=== PATIENT | female | born 1970 | race Caucasian/White ===

== ENCOUNTER 2017-07-15 10:17 | Inpatient (IN) | payer OTHER ==
--- NOTE | 2017-07-14 09:27 | HP ---
Satellite [facility] - Chief Complaint Chief Complaint: right knee pain - Past Medical History Allergies/Adverse Reactions: Allergies Allergy/AdvReac Type Severity Reaction Status Date / Time No Known Drug Allergies Allergy Verified 07/08/17 15:28 ...LMP: 01/17/16 - Current Medications Current Medications: Home Medications Medication Instructions Recorded Omeprazole 40 mg PO DAILY 07/08/17 Satellite Physical Exam - Physical Examination General Appearance: Well Nourished, Well Developed, Alert & Oriented x3 ENT: Clear Lung: Normal air movement Heart: Regular rate & rhythm Extremities: Other (right knee- + swelling, + ttp, decr rom, nvi xrays show grade 4 tricompartmental djd) Neurological: Intact, Alert, Oriented Satellite Impression/Plan - Impression/Plan Impression: right knee djd Operative Procedure: right raoul tkr Date to be Performed: 07/15/17
[~2017-07-15 10:17] MED LIST: LACTATED RINGERS SOLUTION 1,000 ML IV SCH; ONDANSETRON 4 MG/2 ML VIAL IVPUSH PRN; PROMETHAZINE HCL 25 MG/1 ML VIAL IVPUSH PRN
[2017-07-15] MEDS ORDERED: CEFAZOLIN 2 GM in DEXTROSE 5%-WATER - 50 ML IVPB ONE (10:28)
[2017-07-15] MEDS ORDERED: TRANEXAMIC ACID 1000 MG/10 ML VIAL IVPUSH ONE (10:28)
[2017-07-15] MEDS ORDERED: oxyCODONE HCL 10 MG SUSTAINED ACTING TABLET PO ONE (10:28)
[2017-07-15] MEDS ORDERED: CELECOXIB 200 MG CAPSULE PO ONE (10:28)
[2017-07-15] MEDS ORDERED: GABAPENTIN 300 MG CAPSULE (FP) PO ONE (10:28)
[2017-07-15] MEDS ORDERED: VANCOMYCIN 1,000 MG VIAL (RESTRICTED TO ID ONLY) ONE (11:25)
[2017-07-15] MEDS ORDERED: ceFAZolin SODIUM 1 GM VIAL ONE ×2 (11:25→14:12)
[2017-07-15 12:10] VITALS: BMI 41.8
[2017-07-15] MEDS ORDERED: DEXAMETHASONE SOD PHOSPHATE/PF 10 MG/ML SDV ONE (13:30)
[2017-07-15] MEDS ORDERED: MIDAZOLAM HCL 2 MG/2 ML SINGLE DOSE VIAL ONE ×3 (13:30→15:26)
[2017-07-15] MEDS ORDERED: ROPIVACAINE HCL 0.5% 30ML VIAL ONE (13:30)
[2017-07-15] MEDS ORDERED: SODIUM CHLORIDE 0.9% P/F 10 ML VIAL IJ ONE (13:30)
[2017-07-15] MEDS ORDERED: TRANEXAMIC ACID 1000 MG/10 ML VIAL ONE (14:12)
[2017-07-15] MEDS ORDERED: DEXAMETHASONE SOD PHOSPHATE 4 MG/1 ML VIAL ONE (14:38)
[2017-07-15] MEDS ORDERED: ONDANSETRON 4 MG/2 ML VIAL ONE (14:38)
[2017-07-15] MEDS ORDERED: SUCCINYLCHOLINE CHLORIDE 200 MG/10 ML VIAL ONE (15:03)
[2017-07-15] MEDS ORDERED: PROPOFOL 20 ML ONE (15:04)
[2017-07-15] MEDS ORDERED: MAGNESIUM HYDROX 2400MG/30ML ORAL SUSPENSION 30 ML CUP PO PRN (16:49)
[2017-07-15] MEDS ORDERED: MAG HYDROX/AL HYDROX/SIMETH 30 ML UNIT-DOSE CUP PO PRN (16:49)
[2017-07-15] MEDS ORDERED: ONDANSETRON 4 MG/2 ML VIAL IVPUSH PRN ×2 (16:49→17:11)
--- NOTE | 2017-07-15 16:52 | OP ---
Operative Note - Note: Operative Date: 07/15/17 (janeen) Pre-Operative Diagnosis: right knee djd Operation: right raoul tkr Post-Operative Diagnosis: Same as Pre-op Surgeon: Noel Rojas Supervisor Paper Machine: Ray Nogueira) Anesthesiologist/CONSTRUCTION CARPENTER: Curry Salinas Anesthesia: Spinal, Local Specimens Removed: bone fragments Estimated Blood Loss (mls): 50 (tourniquet) Operative Report Dictated: Yes
[2017-07-15] MEDS ORDERED: LACTATED RINGERS SOLUTION 1,000 ML IV SCH (17:00)
[2017-07-15] MEDS ORDERED: PROMETHAZINE HCL 25 MG/1 ML VIAL IVPUSH PRN (17:11)
[2017-07-15] MEDS ORDERED: oxyCODONE HCL 5 MG TABLET PO PRN (17:16)
[2017-07-15] MEDS: LACTATED RINGERS SOLUTION 1,000 ML IV SCH (19:17)
[2017-07-15] MEDS: oxyCODONE HCL 5 MG TABLET PO PRN ×2 (19:44→23:39)
[2017-07-15 21:16] LABS: HIV 1 & 2 AB NEGATIVE; HIV 1 AGp24 NEGATIVE
[2017-07-15] MEDS: GABAPENTIN 300 MG CAPSULE (FP) PO SCH (21:24)
[2017-07-15] MEDS: oxyCODONE HCL 10 MG SUSTAINED ACTING TABLET PO SCH (21:25)
[2017-07-15] MEDS: SENNOSIDES/DOCUSATE COMBO (SENNA PLUS) TABLET (UD) PO SCH (21:25)
[2017-07-15] MEDS: CEFAZOLIN 2 GM/D5W 2 GM/50 ML ML IVPB SCH (21:26)
[2017-07-16] MEDS: oxyCODONE HCL 5 MG TABLET PO PRN ×2 (05:00→17:17)
[2017-07-16] MEDS: CEFAZOLIN 2 GM/D5W 2 GM/50 ML ML IVPB SCH (05:46)
[2017-07-16 08:15] LABS: MCH 30.7 pg (25.7-33.7); MCHC 33.3 g/dl (32.0-36.0); MEAN CELL VOLUME 92.2 fl (80-96); MEAN PLT VOLUME 11.8 fl (7.5-11.1); PLATELET COUNT 173 K/MM3 (134-434); RDW 12.6 % (11.6-15.6)
[2017-07-16] MEDS: ASPIRIN 325 MG TABLET PO SCH (08:55)
[2017-07-16] MEDS: SENNOSIDES/DOCUSATE COMBO (SENNA PLUS) TABLET (UD) PO SCH ×2 (09:11→21:04)
[2017-07-16] MEDS: PANTOPRAZOLE 40 MG TABLET (FP) PO SCH (09:11)
[2017-07-16] MEDS: GABAPENTIN 300 MG CAPSULE (FP) PO SCH ×2 (09:12→21:04)
[2017-07-16] MEDS: oxyCODONE HCL 10 MG SUSTAINED ACTING TABLET PO SCH ×2 (09:12→21:05)
[2017-07-16] MEDS: MULTIVITAMINS (DAILY MVI) TABLET (FP) PO SCH (09:12)
--- NOTE | 2017-07-16 09:27 | PN ---
Progress Note (short form) - Note Progress Note: Ortho Pt seen and examined s/p right raoul tkr pod #1 Selected Entries 07/16/17 06:00 Temperature 98.6 F Pulse Rate 67 Respiratory 20 Rate Blood Pressure 116/63 Laboratory Tests 07/16/17 07:30 WBC 10.0 Hgb 12.3 Hct 36.8 Plt Count 173 dressing c/d/i, calf soft, nt rom 0-40, nvi a/p PT dvt ppx pain control d/c home tomorrow if stable
--- NOTE | 2017-07-16 10:59 | PN ---
Progress Note (short form) - Note Progress Note: Post op day#1.S/p Right total knee replacement under spinal anesthesia with R adductor canal and R selective tibial N block uneventful.Patient stable and c/ o pain score of 4-5/10 after physiotherapy.Patient is on medication for pain.No any anesthesia related problem.Patient dc from the anesthesia care.
--- NOTE | 2017-07-16 11:18 | SPEC ---
DATE OF OPERATION: 07/15/2017 PREOPERATIVE DIAGNOSIS: Degenerative joint disease, right knee. POSTOPERATIVE DIAGNOSIS: Degenerative joint disease, right knee. PROCEDURE: Right total knee replacement with robotic-assisted navigation (Makoplasty). SURGICAL ATTENDING: Noel Rojas MD COMPUTER INSTALLATION ENGINEER: Elham Estrella and Ray Nogueira MD ANESTHESIA: Spinal and regional. CLOSURE: A Triathlon cemented total knee system with a 5 femur, a 4 tibia, an 11 polyethylene, a 32 patella, number 1 Vicryl fascia, 0 and 2-0 subcutaneous, 3-0 Monocryl subcuticular with skin glue for skin, 4-0 undyed Vicryl for pin sites. ESTIMATED BLOOD LOSS: Negligible. TOURNIQUET TIME: Approximately 110 minutes. COMPLICATIONS: None. CONDITION: To recovery room in stable condition. DESCRIPTION OF OPERATIVE PROCEDURE: Patient was taken to the operating room on July 15, 2017. Regional and general anesthesia was administered by the anesthesiologist. IV Kefzol and TXA were administered by the anesthesiologist. Well-padded pneumatic tourniquet was placed on the proximal thigh. The right lower extremity was prepped and draped in the usual sterile fashion. The leg was exsanguinated with an Esmarch bandage, and tourniquet was inflated to 275 mmHg. A 12 to 15-cm longitudinal midline incision was incised while centered over the patella. The dissection was carried down to the level of the extensor mechanism with sufficient flaps made to adequately perform the procedure. A medial parapatellar arthrotomy was then performed. We made a cuff of tissue on the patella for later closure. The patella was inverted, the knee was flexed up. The fat pad was excised. The subperiosteal dissection was on the anteromedial proximal tibia around towards the direction of the MCL. The ACL and the PCL were transected and debrided. The meniscal remnants of the medial and lateral meniscus were debrided and removed. This allowed the knee to be able to "be brought forward." The checkpoints were malleted into the tibia and into the femur. Two threaded pins were drilled anteroposteriorly proximal to the knee through the previous incision, through the anterior cortex, then just engaging the posterior cortex. To these pins was assembled the femoral navigation array. One handbreadth below the tibial tubercle, 2 stab incisions were used to drill 2 threaded pins in parallel fashion into the tibia, again through the anterior cortex and just engaging the posterior cortex. To these pins was fastened the tibial arrays. The knee was then registered with the navigation device with center of rotation of the hip, medial and lateral malleoli, both checkpoints, and multiple points on both the femur and the tibia to ensure excellent registration. The navigation device was directed off the "top of the bubbles" on both the femur and the tibia. The navigation passed within less than 0.5 mm to plan. The knee was then thoroughly inspected to remove all osteophytes both medially, laterally, and on the femur and the tibia, and whatever osteophytes were available for dissection. The knee was then taken to extension and to flexion, and stressed in both varus and valgus to assess flexion gaps. The virtual position of the components on the navigation device were then manipulated to optimize the position and to ensure equal gaps in both flexion and extension, and both medially and laterally. The robot was then brought into the field and was registered. The cuts were then made both on the femur and on the tibia as to plan. All osteophytes posteriorly were then removed as well. The gaps were then measured again in flexion and extension to be equal in both flexion and extension and medial and laterally. The femoral notch was then made, as we were doing a posterior stabilizing component, with the appropriate sized box. Trial reduction of the femur achieved excellent [id number] fit. A tibial baseplate of appropriate polyethylene thickness was "floated in the knee." It was ensured to be in the excellent position by navigation devices and was pinned in place. The knee was taken through a range of motion, and found to have excellent stability throughout flexion and extension. The patella was calibrated for thickness and osteotomized down to the appropriate level. The appropriate lollipop was used to drill the lug holes in the patella and the trial button was applied. The knee was taken through a range of motion and found to have excellent tracking of the patella, and patella from full extension to full flexion. Trial components were removed, the keel was punched and drilled, and a sclerotic bone on the tibia was drilled to help with cement interdigitation. The knee was thoroughly irrigated with the pulse antibiotic broomcorn press feeder. The real components were then cemented in using monitored arrangement cement techniques with antibiotic cement, and pressurization and extension. After the cement was hardened, the knee was thoroughly inspected to remove any extra cement. The real polyethylene component was then clipped into place. Range of motion, stability, and tracking were as described earlier. The checkpoints and the pins were removed. The knee was thoroughly irrigated with antibiotic irrigation. Vancomycin powder was placed into the knee for antibiotic prophylaxis. The medial parapatellar arthrotomy was then closed using number 1 Vicryl interrupted suture. After closure of the deep layer, the knee was taken through a range of motion, and found to have excellent stability of the patella with no dislocation and no undue tension on the repair. The subcutaneous was pulse antibiotic irrigated, and was then closed with 2-0 Vicryl, 3-0 Monocryl subcuticular with the skin glue for the skin. The distal tibial pin site was irrigated thoroughly as well and then closed with 4-0 undyed Vicryl. A sterile Aquacel dressing was applied, followed by a Reyes dressing. Tourniquet was deflated. Total tourniquet time was approximately 110 minutes. No complications. Patient was awakened from anesthesia and transferred to recovery room in stable condition. Postoperative x-rays revealed excellent position of the components. Ray Nogueira MD dictating for MD NOEL Jasso M.D. [id number]
[2017-07-16] MEDS: LACTATED RINGERS SOLUTION 1,000 ML IV SCH (18:07)
[2017-07-17 06:18] VITALS: BP 127/67; PULSE 80; TEMP 98.2
[2017-07-17] MEDS: oxyCODONE HCL 5 MG TABLET PO PRN (06:24)
--- NOTE | 2017-07-17 07:31 | PN ---
Progress Note (short form) - Note Progress Note: Ortho Pt seen and examined s/p right raoul tkr pod #2 Selected Entries 07/17/17 06:17 Temperature 98.2 F Pulse Rate 80 Respiratory 18 Rate Blood Pressure 127/67 Laboratory Tests 07/16/17 07:30 WBC 10.0 Hgb 12.3 Hct 36.8 Plt Count 173 dressing c/d/i, calf soft, nt rom 0-40, nvi a/p PT dvt ppx pain control d/c home today f/u in 1 week
--- NOTE | 2017-07-17 07:32 | DS ---
Physical Examination Vital Signs: Vital Signs Temperature 98.2 F 07/17/17 06:17 Pulse Rate 80 07/17/17 06:17 Respiratory Rate 18 07/17/17 06:17 Blood Pressure 127/67 07/17/17 06:17 O2 Sat by Pulse Oximetry (%) 93 L 07/17/17 06:17 Labs: CBC, BMP 07/16/17 07:30 Discharge Summary Reason For Visit: OSTEOARTHRITIS Procedures: Principal: s.p right raoul tkr Hospital Course: admitted for elective right raoul tkr, uneventful post-op, stable for d/c Condition: Good - Instructions Diet, Activity, Other Instructions: Post-op Instructions-Total Knee Replacement Call the office for a follow-up appointment in 1 week - [phone] Aspirin 325mg daily for 6 weeks. Pain medication was sent into your pharmacy. Apply Graduated Compression Stockings (TEDs) to both lower extremities- remove daily for hygiene ONLY Apply Sequential Compression Device (SCDs) to both Lower extremities remove for PT and hygiene ONLY Apply cold packs to affected area for 15 minutes every 2 hours. Physical Therapist will come to your home for the first 5 days. You will be set up with outpatient PT at your first post-operative visit. Patient may ambulate as tolerated-encourage self care (at least every 2-3 hours while awake) with walker or cane Maintain Aquacel (waterproof) dressing to operative wound (will be removed by surgeon at first office visit) Shower with Aquacel dressing in place-if Aquacel integrity compromised, remove and apply dry sterile dressing and notify Orthopedist. DO NOT SHOWER unless Orthopedists approves without Aquacel dressing CONTACT THE OFFICE FOR ANY CHANGE IN YOUR CONDITION (for example-fever greater than 102 degrees, excessive bleeding from operative site, purulent drainage, severe swelling or pain) GO TO THE EMERGENCY ROOM IF THERE IS A MEDICAL EMERGENCY Knee Precautions: * Keep a rolled towel under affected heel while in bed or chair (to keep knee in extension) * Keep affected leg elevated except during mealtimes * DO NOT PLACE PILLOW UNDER AFFECTED KNEE * If you have any questions, please do not hesitate to call the office - [phone]. Referrals: Ray Nogueira MD [Staff Physician] - Disposition: VNS/HOME HEALTH CARE - Home Medications Comprehensive Discharge Medication List: Ambulatory Orders Omeprazole 40 mg PO DAILY 12/05/17 Aspirin [ASA -] 325 mg PO DAILY@0800 tablet 07/15/17 Oxycodone HCl/Acetaminophen [Percocet 5-325 mg Tablet] 1 - 2 tab PO Q6H #50 tab MDD 8 07/15/17
[2017-07-17] MEDS: ASPIRIN 325 MG TABLET PO SCH (08:58)
[2017-07-17] MEDS: SENNOSIDES/DOCUSATE COMBO (SENNA PLUS) TABLET (UD) PO SCH (08:59)
[2017-07-17] MEDS: oxyCODONE HCL 10 MG SUSTAINED ACTING TABLET PO SCH (09:00)
[2017-07-17] MEDS: PANTOPRAZOLE 40 MG TABLET (FP) PO SCH (09:00)
[2017-07-17] MEDS: GABAPENTIN 300 MG CAPSULE (FP) PO SCH (09:01)
[2017-07-17] MEDS: MULTIVITAMINS (DAILY MVI) TABLET (FP) PO SCH (09:01)
[2017-07-17 09:20] LABS: MCH 32.1 pg (25.7-33.7); MCHC 34.9 g/dl (32.0-36.0); MEAN PLT VOLUME 12.1 fl (7.5-11.1); PLATELET COUNT 158 K/MM3 (134-434); RDW 12.8 % (11.6-15.6); WHITE BLOOD COUNT 9.8 K/mm3 (4.0-10.8)
--- NOTE | 2017-07-17 16:23 | PATH ---
Surgical Pathology Report Patient Name: VANCE KISER Med. Rec. #: [id number] /Age/Gender: 1970 (Age: 47) / F Account: [id number] Location: [facility] Taken: 07/15/2017 Received: 07/15/2017 Reported: 07/17/2017 Physicians: Noel Rojas M.D. Specimen(s) Received RIGHT KNEE BONES Clinical History Osteoarthritis right knee Final Diagnosis BONE AND SOFT TISSUE, RIGHT KNEE, REPLACEMENT: DEGENERATIVE JOINT DISEASE. Electronically Signed Jacinto Solis M.D. Gross Description Received in formalin labeled "right knee bones," is a 12.0 x 9.0 x 1.8 cm aggregate of alvarenga, irregular portion of bone and soft tissue, consistent with knee bones. The articular surfaces are alvarenga-yellow and focally granular. No areas of eburnation are identified. The underlying trabecular bone is yellow and hard. Senior Program Analyst sections are submitted in one cassette, following decalcification. 07/16/2017 [facility]07/16/2017
== END 2017-07-17 13:23 | disposition home health service (06) | DRG 470 ==
LOC: FM/S 10:17
PROVIDERS: ADMIT Orthopaedic Surgery; ATTEND Orthopaedic Surgery
PROC: 8E0Y0CZ Robotic Assisted Procedure of Lower Extremity, Open Approach (ICD-10-PCS; 2017-07-15)
PROC: 0SRC0J9 Replacement of Right Knee Joint with Synthetic Substitute, Cemented, Open Approach (ICD-10-PCS; principal; 2017-07-15 14:20)
DX: M17.11 Unilateral primary osteoarthritis, right knee (principal); Z68.41 Body mass index [BMI] 40.0-44.9, adult; K21.9 Gastro-esophageal reflux disease without esophagitis; E66.01 Morbid (severe) obesity due to excess calories
CPT/HCPCS: 36415; 73560-TC-RT; 84703; 85027; 87389; 88304-TC; 88311-TC; 94760; 97116-GP; 97162-GP

== ENCOUNTER 2024-03-19 04:19 | Day surgery (SDC) | payer OTHER ==
[2024-03-12 10:23] VITALS: BMI 46.3
[2024-03-19 10:51] VITALS: TEMP 98
[2024-03-19 11:37] VITALS: BP 108/89; PULSE 53; RESP 15
== END 2024-03-19 11:49 | disposition home or self-care (01) ==
LOC: JASU-ENDO 04:19
PROVIDERS: ATTEND Internal Medicine Gastroenterology
PROC: 0DBP8ZX Excision of Rectum, Via Natural or Artificial Opening Endoscopic, Diagnostic (ICD-10-PCS; 2024-03-19)
PROC: 0DB98ZX Excision of Duodenum, Via Natural or Artificial Opening Endoscopic, Diagnostic (ICD-10-PCS; 2024-03-19)
PROC: 0DB68ZX Excision of Stomach, Via Natural or Artificial Opening Endoscopic, Diagnostic (ICD-10-PCS; 2024-03-19)
PROC: 0DBC8ZX Excision of Ileocecal Valve, Via Natural or Artificial Opening Endoscopic, Diagnostic (ICD-10-PCS; principal; 2024-03-19 10:00)
DX: Z12.11 Encounter for screening for malignant neoplasm of colon (principal); Z80.0 Family history of malignant neoplasm of digestive organs; D12.8 Benign neoplasm of rectum; D12.0 Benign neoplasm of cecum; K21.00 Gastro-esophageal reflux disease with esophagitis, without bleeding; K44.9 Diaphragmatic hernia without obstruction or gangrene
CPT/HCPCS: 88305-TC; 88342-TC